=== PATIENT | male | born 1995 | race Caucasian/White ===

== ENCOUNTER 2021-02-15 09:43 | Emergency (ER) | payer OTHER, SELFPAY ==
[2021-02-15 09:53] VITALS: BP 150/79; PULSE 80; RESP 14; TEMP 37.3; O2SAT 99
--- NOTE | 2021-02-15 10:30 | ED.GENADUL_ITS ---
Discharge Plan Disposition Patient Disposition: HOME Condition: Good Discharge Details Clinical Impression: Abdominal pain, Diarrhea Primary Care Provider: Unknown,Unknown ED Provider: Arely Guajardo Home Meds and New Rx's Prescriptions: New dicyclomine 20 mg tablet 20 mg PO TID Qty: 20 RF: 0 No Action vitamin B complex Capsule RF: 0 lorazepam [Ativan] 1 mg tablet 1 mg PO TID PRNQty: 12 RF: 0 dicyclomine 10 mg capsule 10 mg PO TID Qty: 10 RF: 0 Discharge Instructions Instructions: Acute Diarrhea (ED), Abdominal Pain (ED) Additional Instructions: Please establish care with a primary care physician, he has been placed on care management list, they should contact you in follow-up You may try taking the Bentyl if you have diarrhea and stomach cramping Try keeping a diary of what you eat and drink and what perhaps precipitates your symptoms Please return with fever, chills, or should you develop new or worsening complaints Your labs today are all within normal limits Discharge Data Discharge Date/Time-TO BE ENTERED AT DEPARTURE: 02/15/21 12:16 Medical Decision Making Diagnostic labs not show any acute abnormality, chest x-ray does not show any evidence of abnormality, vitals stable, patient, alert, oriented, of decisional capacity, resting comfortably in room Given Bentyl for abdominal discomfort Discharged home in stable condition with stable vitals, PCP referral supplied, placed on care management list for follow-up Discharge home with girlfriend Medical Records Medical records reviewed: Yes I reviewed the patient's medical records. Lab Data Lab results reviewed: Yes I reviewed the patient's lab results. HPI General Date/Time Provider Initiated Documentation: 02/15/21 09:47 . HPI Narrative: This is a 26-year-old male presents with a complaint 1 year of abdominal cramping. he states that he feels exhausted because he is very tired he feels short of breath secondary to his exhaustion when going upstairs. He states that he has some cramping in his abdomen first thing in the morning and has a bowel movement which temporarily alleviates the cramping but then several hours later had an episode of diarrhea consistently, and after this his pain is resolved. He denies any chest pain or shortness of breath. He denies any change in the symptoms and states they have been present for 1 year. He denies any worsening symptoms today. He denies any fever or chills. He denies any sick contacts. he is concerned that he is dehydrated. He denies any pain in his chest. States he does have anxiety, does not denies any suicidal or homicidal ideation. Denies any current drug use. Denies tobacco or regular alcohol use. Related Data Home Medications Medication Instructions Recorded Confirmed dicyclomine 10 mg PO TID #10 cap 02/15/21 dicyclomine 20 mg PO TID #20 tab 02/15/21 02/15/21 lorazepam [Ativan] 1 mg PO TID PRN #12 tab 02/15/21 vitamin B complex cap 02/15/21 Previous Rx's Medication Instructions Recorded dicyclomine 10 mg PO TID #10 cap 02/15/21 dicyclomine 20 mg PO TID #20 tab 02/15/21 lorazepam [Ativan] 1 mg PO TID PRN #12 tab 02/15/21 Allergies Allergy/AdvReac Type Severity Reaction Status Date / Time No Known Allergies Allergy Unverified 02/15/21 13:40 General Stated Complaint: GenMedical JOEY: 3 Review of Systems All systems reviewed & are unremarkable except as noted in HPI and below PFSH Medical History (Updated 02/15/21 @ 15:04 by MORA Melchor) Pneumonia Surgical History (Updated 02/15/21 @ 10:02 by Timmy Rosa) H/O hand surgery Social History Smoking/Tobacco Use Status: Never Smoking risk assessment performed?: Yes Alcohol Intake: former Drug use: Never Substance use type: does not use Do you feel safe at home: Yes Do you feel safe in your relationship?: Yes Exam Const General: cooperative and no acute distress Eyes Sclera: sclerae normal Chest Chest: normal inspection of the chest Resp Effort & Inspection: normal respiratory effort Auscultation: clear to auscultation bilaterally Cardio Rate: regular rate Rhythm: regular rhythm GI Other: No abdominal tenderness, no rebound or guarding Skin General skin exam: no rashes or lesions noted Neuro General: patient alert and patient oriented x3 Psych Appearance: well kempt Speech and Movement: speech and movement normal Course Vital Signs Vital signs: Vital Signs Temperature 37.3 C 02/15/21 09:53 Pulse 80 02/15/21 09:53 Respiratory Rate 14 02/15/21 09:53 Blood Pressure 150/79 H 02/15/21 09:53 Pulse Oximetry 99 02/15/21 09:53 Temperature 37.3 C 02/15/21 09:53 Temperature Source Tympanic 02/15/21 09:53 Pulse 80 02/15/21 09:53 Respiratory Rate 14 02/15/21 09:53 Blood Pressure 150/79 H 02/15/21 09:53 Pulse Oximetry 99 02/15/21 09:53 Oxygen Delivery Method Room Air 02/15/21 09:53 Oxygen Flow Rate 0 02/15/21 09:53 Pain Level 0 02/15/21 09:53
--- NOTE | 2021-02-15 10:52 | DI.RAD_ITS ---
Exam(s) XR CHEST 2V PA LATERAL EXAM: XR CHEST 2V PA LATERAL CLINICAL HISTORY: shortness of breath TECHNIQUE: 2D digital imaging was performed. COMPARISON: No exams were available for comparison FINDINGS: MEDIASTINUM: Normal. HEART: Normal. PULMONARY VASCULATURE: Normal. LUNGS: Clear. PLEURAL SPACE: No pleural effusion or pneumothorax. BONE:Within normal limits for the patient's age. OTHER FINDINGS:Normal. IMPRESSION: No acute pulmonary findings. DATA REPOSITORY: RADIATION DOSE DELIVERED:
[2021-02-15 10:53] LABS: Bilirubin Negative (Negative); Blood Negative (Negative); Clarity Clear (Clear); Glucose Negative (Negative); Ketones Negative (Negative); Leukocyte Esterase Negative (Negative); Nitrite Negative (Negative); Urobilinogen 0.2 EU/dL (Up TO 0.2)
[2021-02-15 11:28] LABS: Abs Immature Grans 0.03 10^3/uL (0.0-0.06); Absolute Basophil Count 0.03 10^3/uL (0.0-0.2); Absolute Eosinophil Count 0.06 10^3/uL (0.0-0.7); Absolute Lymphocyte Count 1.41 10^3/uL (1.2-3.4); Absolute Monocyte Count 0.52 10^3/uL (0.1-0.8); Absolute Neutrophil Count 6.51 10^3/uL (1.2-6.7); Basophils % 0.4; Eosinophils % 0.7; HCT 44.9 % (40.0-50.0); HGB 15.8 g/dL (13.5-17.5); Immature Grans % 0.4; Lymphocytes % 16.5; MCH 30.6 pg (27.0-33.0); MCHC 35.2 % (32.0-36.0); MCV 86.8 fL (80-95); Monocytes % 6.1; Neutrophils % 75.9; Nucleated RBC 0 %; Platelet Count 263 10^3/uL (130-400); RBC 5.17 10^6/uL (4.36-5.78); RDW 11.9 % (11.8-14.1); WBC 8.56 10^3/uL (4.4-10.8)
[2021-02-15 11:49] LABS: ALT 31 U/L (16-63); AST 18 U/L (15-37); Albumin 4.8 g/dL (3.4-5.0); Alkaline Phosphatase 77 U/L (46-116); Anion Gap 11.2 mmol/L (3-11); BUN 11 mg/dL (7-18); Bilirubin, Total 0.7 mg/dL (0.2-1.0); CO2 26.8 mmol/L (21.0-32.0); CREATININE 0.8 mg/dL (0.70-1.30); Calcium 9.5 mg/dL (8.5-10.1); Chloride 102 mmol/L (98-107); Glucose 110 mg/dL (74-106); Magnesium 1.9 mg/dL (1.8-2.4); Potassium 3.8 mmol/L (3.5-5.1); Sodium 140 mmol/L (136-145); TSH 0.78 uIU/mL (0.36-3.74)
[2021-02-15 12:15] VITALS: BP 150/79; PULSE 80; RESP 14; RESP 20; TEMP 37.3; O2SAT 99
== END 2021-02-15 12:16 | disposition home or self-care (01) ==
PROVIDERS: Emergency Provider Physician Assistant
DX: R10.9 Unspecified abdominal pain (principal); R19.7 Diarrhea, unspecified
CPT/HCPCS: 36415; 80053; 99283; 71046; 81003; 83735; 84443; 85025

== ENCOUNTER 2021-02-15 12:44 | Emergency (ER) | payer OTHER, SELFPAY ==
[2021-02-15 12:50] VITALS: BP 139/90; PULSE 119; RESP 20; TEMP 37; O2SAT 98
--- NOTE | 2021-02-15 13:37 | ED.GENADUL_ITS ---
Discharge Plan Disposition Patient Disposition: HOME Condition: Stable Discharge Details Clinical Impression: Auditory hallucinations Primary Care Provider: Unknown,Unknown ED Provider: Arely Guajardo Home Meds and New Rx's Prescriptions: New lorazepam [Ativan] 1 mg tablet 1 mg PO TID PRNQty: 12 RF: 0 dicyclomine 10 mg capsule 10 mg PO TID Qty: 10 RF: 0 No Action vitamin B complex Capsule RF: 0 dicyclomine 20 mg tablet 20 mg PO TID Qty: 20 RF: 0 Discharge Instructions Additional Instructions: Please follow-up with your primary care physician and let them know you are finding Please also follow-up with [facility] human services or intake, they should contact you Take Ativan as needed do not combine with alcohol Please return should he develop any thoughts of wanting to harm yourself, others, or with any new or worsening complaints Stand Alone Forms: Work Release Discharge Data Discharge Date/Time-TO BE ENTERED AT DEPARTURE: 02/15/21 15:13 Medical Decision Making Patient is alert, oriented, decisional capacity, he is tearful but cooperative Patient [facility] and he will be set up for intake appointment Patient declines hospital admission and does not warrant involuntary status Patient does not appear to be under the influence of any mood altering substances He will be discharged home in the care of his girlfriend and comfortable with this plan, he is alert, oriented, of decisional capacity, he is quite pleasant and demeanor He is calm and cooperative and I think safe for discharge home at this time He denies any suicidal or homicidal ideation Patient tolerated Ativan well, given several doses for home with, at risk of addiction discussed Medical Records Medical records reviewed: Yes I reviewed the patient's medical records. Lab Data Lab results reviewed: Yes I reviewed the patient's lab results. HPI General Mode of arrival: ambulatory . Date/Time Provider Initiated Documentation: 02/15/21 12:58 . Limitations to Documentation: no limitations . Information obtained by: patient . HPI Narrative: This 26-year-old gentleman was evaluated in the emergency room 1 hour prior to arrival and returns with anxiety, and report of auditory and visual hallucinations. He denies any chest pain or shortness of breath. He denies any attempts to harm self or others. He denies any suicidal or homicidal ideation. He states he has had these symptoms intermittently for the past several years. He says that he has extreme paranoia and when he goes to the grocery store he feels like people are trying to harm him. He states that he does realize that they were likely not trying to harm him but he has a hard time he states the voices are persistent. He states that he is boarded up the door to his house because he is worried that the government and the police are out to get him . He states that sometimes he realizes that this is a rational thought, however he has never had formal evaluation of his not felt comfortable with physicians. He states that he tried to convince himself that this was all abdominal and but food was contributing to his symptoms. He states he is unable to even go out to eat as he feels that people may be poisoning him . He denies any drug use or alcohol consumption. Related Data Home Medications Medication Instructions Recorded Confirmed dicyclomine 10 mg PO TID #10 cap 02/15/21 dicyclomine 20 mg PO TID #20 tab 02/15/21 02/15/21 lorazepam [Ativan] 1 mg PO TID PRN #12 tab 02/15/21 vitamin B complex cap 02/15/21 Previous Rx's Medication Instructions Recorded dicyclomine 10 mg PO TID #10 cap 02/15/21 dicyclomine 20 mg PO TID #20 tab 02/15/21 lorazepam [Ativan] 1 mg PO TID PRN #12 tab 02/15/21 Allergies Allergy/AdvReac Type Severity Reaction Status Date / Time No Known Allergies Allergy Unverified 02/15/21 13:40 General Stated Complaint: PsychEval JOEY: 2 Review of Systems All systems reviewed & are unremarkable except as noted in HPI and below PFSH Medical History (Updated 02/15/21 @ 15:04 by MORA Melchor) Pneumonia Surgical History (Updated 02/15/21 @ 10:02 by Timmy Rosa) H/O hand surgery Social History Smoking/Tobacco Use Status: Never Smoking risk assessment performed?: Yes Alcohol Intake: former Drug use: Never Substance use type: does not use Do you feel safe at home: Yes Do you feel safe in your relationship?: Yes Exam Const General: cooperative Eyes Pupils: PERRL Resp Effort & Inspection: normal respiratory effort Auscultation: clear to auscultation bilaterally Cardio Rate: regular rate Rhythm: regular rhythm Skin General skin exam: no rashes or lesions noted Neuro General: patient alert and patient oriented x3 Cranial Nerves: CN's II-XI intact bilaterally and tongue midline Cognition: normal cognition Speech: speech normal Gait: normal gait Sensory Exam: no sensory deficits noted Psych Appearance: well kempt Mental Status: mental status grossly normal Speech and Movement: speech and movement normal Mood: anxious mood Affect: sad Attitude: cooperative Thought Process: normal Thought Content: delusions Insight: insight good Judgment: fair Course Vital Signs Vital signs: Vital Signs Temperature 37 C 02/15/21 12:50 Pulse 119 H 02/15/21 12:50 Respiratory Rate 20 02/15/21 12:50 Blood Pressure 139/90 02/15/21 12:50 Pulse Oximetry 98 02/15/21 12:50 Temperature 37 C 02/15/21 12:50 Temperature Source Tympanic 02/15/21 12:50 Pulse 119 H 02/15/21 12:50 Respiratory Rate 20 02/15/21 12:50 Blood Pressure 139/90 02/15/21 12:50 Pulse Oximetry 98 02/15/21 12:50 Oxygen Delivery Method Room Air 02/15/21 12:50 Oxygen Flow Rate 0 02/15/21 12:50 Pain Level 0 02/15/21 12:50
[2021-02-15 13:54] LABS: *AMPHETAMINES SCREEN URINE Negative (Negative); *BARBITURATES SCREEN URINE Negative (Negative); *BENZODIAZEPINES SCREEN URINE Negative (Negative); Cannabinoids THC Negative (Negative); Cocaine Screen,Urine Negative (Negative); METHADONE URINE SCREEN Negative (Negative); OPIATES URINE SCREEN Negative (Negative)
[2021-02-15 13:55] LABS: Tricyclic Antidepressants Negative (Negative)
--- NOTE | 2021-02-15 13:59 | NUR.NOTE ---
patient with mental health. Nursing Note:
--- NOTE | 2021-02-15 14:09 | NUR.NOTE ---
patient refused medication, provider aware. Nursing Note:
[2021-02-15 14:12] LABS: ETHANOL BLOOD < 3.0 mg/dL (<3)
[2021-02-15] MEDS: LORazepam 1 MG TAB PO (14:47)
[2021-02-15 14:50] VITALS: BP 125/84; PULSE 86; O2SAT 98
--- NOTE | 2021-02-15 14:52 | NUR.NOTE ---
patient medicated per provider. Nursing Note:
--- NOTE | 2021-02-15 18:30 | NUR.NOTE ---
Nursing Note: Referral given to care management to establish pcp and follow up. libl
--- NOTE | 2021-02-18 14:47 | PDOC.MHCN_ITS ---
Date of service: 02/15/21 Time of Service: 13:35 Mental Health Crisis Note Presenting Issue How did you arrive at the ED and why did you come: The client presented to [facility] ED with chief complaint of anxiety, paranoia, and persistent auditory hallucinations. Precipitating Factors The client presents sitting in a chair and is accompanied by his girlfriend Karine. Grooming is neat / tidy. He is fully alert and oriented to time, person, place, and global circumstance. He presents as somewhat guarded / mildly anxious and periodically shifts himself nervously but is otherwise cooperative and engaged. His speech is clear and coherent, normal rate and tone. Appetite variable with some sleep disturbances noted (nightmares). He reports feeling increasingly paranoid over the past several years and discloses suspicion that government agencies, specifically the [employer] service, are attempting to conduct surveillance on him in order to get me. He reports that he typically remains in his home and only leaves for necessities, and states that sometimes out in public he feels as though others may be out to harm him. He states I know they probably aren't going to hurt me. It gets difficult because of the voices. Client reports experiencing persistent auditory hallucinations today, described as an internally generated male authoritarian voice, that instructed him to return to the emergency department in order to get my head checked out. Sometimes I think it's the secret service telling me that I'm bad or sick. He reports that these voices do not command him to harm himself or others expresses understanding that there may not be a rational basis for these voices and thoughts of paranoia. He denies visual or somatic hallucinations. He denies current SI/HI/SIB, intent or plan and states that he has never had thoughts of harming himself or anyone else. He reports feeling safe to return home. Insight appears good and judgement fair. PHQ-9 - Complete CAGE-AID - Complete PC-PTSD-5 - Complete CSSRS - No to all Disposition BEHAVIOR: Guarded / mildly agitated, cooperative EYE CONTACT: Good MOOD: Paranoid AFFECT: Mild agitation / euthymic APPETITE: No reported issues SLEEP(trouble falling/staying asleep: Sleep dysregulation - nightmares Plan The client is seeking an ongoing counseling arrangement and a psychiatric evaluation. Intake packet has been completed and the client will be discharged from the emergency room with the following plan: - [facility] in house referral for counseling and psychiatric evaluation submitted. - Information packet: [place] crisis contact sheet, behavioral health provider listing 2020. The client has agreed to outreach for additional support as needed and will contact 911 if symptoms rise to the level of emergent and/or he feels unsafe. - The client will be staying with his girlfriend / natural support this weekend (Karine: [phone]) and has agreed to a check-in call [id number] at 2:00p on provided number ([phone]). No additional services recommended at this time. Signature Clinician's Name/Title: Dangelo An [facility] clinician / hp
== END 2021-02-15 15:13 | disposition home or self-care (01) ==
PROVIDERS: Emergency Provider Physician Assistant
DX: R44.0 Auditory hallucinations (principal)
CPT/HCPCS: 80307; 99284; 80320; 99283